=== PATIENT | female | born 1995 | race Caucasian/White ===

== ENCOUNTER 2016-12-24 11:02 | Observation (INO) ==
[2016-12-24] MEDS ORDERED: Ringers Solution, Lactated 1,000 ML IVC ONE (11:46)
[2016-12-24] MEDS ORDERED: Ringers Solution, Lactated 1,000 ML ONE (11:55)
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
[2016-12-24 12:30] LABS: Basophils % 0.1 %; Eosinophils # 0.2 K/mcL (0.0-0.6); Hematocrit 31.6 % (35.3-44.9); Hemoglobin 10.1 g/dL (11.5-15.4); Immature Granulocytes % 0.4 % (0-4); Lymphocytes # 1.5 K/mcL (0.6-4.6); Mean Corpuscular Volume 81.2 fL (83.0-100.0); Mean Platelet Volume 10.1 fL (9.4-12.4); Monocytes # 0.8 K/mcL (0.0-1.3); Monocytes % 10.2 %; Neutrophils # 5.4 K/mcL (1.6-8.9); Platelet Count 325 K/mcL (140-400); Red Blood Count 3.89 M/mcL (3.82-4.97); Red Cell Distribution Width 13.8 % (11.5-14.5); Segmented Neutrophils % 68.3 %
== END 2016-12-24 13:43 | disposition home or self-care (01) ==
LOC: 1NENULAB
PROVIDERS: ADMIT Obstetrics & Gynecology; ATTEND Obstetrics & Gynecology

== ENCOUNTER → 2017-03-06 13:45 | Observation (INO) ==
[2017-03-06 12:20] LABS: Bilirubin,Urine Negative (Negative); Blood,Urine Negative (Negative); Clarity,Urine Cloudy (Clear); Color,Urine Dark Yellow (Yellow); Glucose,Urine (UA) Normal (Normal); Ketones,Urine Negative (Negative); Leukocyte Esterase,Urine Large (Negative); Nitrite,Urine Negative (Negative); PH,Urine 6.5 pH Units (5.0-8.0); Protein,Urine Negative (Neg-Trace); Specific Gravity,Urine 1.018 (1.010-1.025); Urobilinogen,Urine Normal (Normal)
[2017-03-06 12:22] LABS: Bacteria,Urine Many per hpf (None-Few); Hyaline Casts,Urine None Seen per lpf (None-Few); Squamous Epithelial Cell,Urine Many per lpf (None-Few)
[2017-03-06 12:38] LABS: WBC,Urine 15-30 per hpf (0-3)
[2017-03-06 12:39] LABS: RBC,Urine 0-3 per hpf (0-3)
--- NOTE | 2017-03-06 13:26 | Discharge Summary ---
Date of Encounter: 03/06/17 Time of Encounter: 13:28 - Discharge Diagnosis (1) 39 weeks gestation of Priority: Primary Status: Acute Comments: 39 weeks 6 days reactive NST cervix 50/-1 urine appears contaminated and not consistent with infection, urine culture sent VS are stable mild pedal edema, denies any headache, changes in vision, RUQ/epigastric pain stable for discharge home scheduled for induction of labor tomorrow 03/07/[address] Baxter consent for induction of labor signed Pt seen and evaluated by this CNM in addition to Dr. Bunch. I agree with his assessment and plan. Pt to monitor FM today and return for IOL tomorrow. Discharge home with precautions. (2) Decreased movement during Priority: Primary Status: Acute Comments: decreased movement NST reactive, category 1 baseline 140-150s with 15 x 15 accels uterine contractions seen on toco scheduled for IOL tomorrow 03/07/2017 at 1000 patient given strict return precautions - Discharge Medications Home Medications: Ferrous Sulfate [Iron] 325 mg PO DAILY #30 tablet 12/24/16 [Rx] Sertraline [Zoloft] 1 tab PO DAILY 12/24/16 [History] Allergies/Adverse Reactions: Allergies No Known Allergies Allergy (Verified 12/24/16 11:31) Data Procedures and tests throughout hospitalization: Laboratory Tests 03/06/17 12:05 Urine Color Dark Yellow Urine Clarity Cloudy A Urine pH 6.5 Ur Specific [place] 1.018 Urine Protein Negative Urine Glucose (UA) Normal Urine Ketones Negative Urine Blood Negative Urine Nitrite Negative Urine Bilirubin Negative Urine Urobilinogen Normal Ur Leukocyte Esterase Large H Urine Microscopic RBC 0-3 Urine Microscopic WBC 15-30 H Ur Squamous Epith Cells Many H Urine Bacteria Many H Hyaline Casts None Seen Ur Culture Indicated? YES A Labs on day of discharge: Labs from last 24 hours 03/06/17 12:05 Urine Color Dark Yellow Urine Clarity Cloudy A Urine pH 6.5 Ur Specific [place] 1.018 Urine Protein Negative Urine Glucose (UA) Normal Urine Ketones Negative Urine Blood Negative Urine Nitrite Negative Urine Bilirubin Negative Urine Urobilinogen Normal Ur Leukocyte Esterase Large H Urine Microscopic RBC 0-3 Urine Microscopic WBC 15-30 H Ur Squamous Epith Cells Many H Urine Bacteria Many H Hyaline Casts None Seen Ur Culture Indicated? YES A Date of admission: 04/26/17 11:28 Primary care physician: PCP NO Discharging clinician: Abdullahi Bunch Anticipated date of discharge: 03/06/17 - Patient Status Disposition: Home, Self-Care Condition: Good Functional capacity at discharge: independent ambulation Overall status at discharge: patient is back to baseline - Discharge Instructions Follow Up With: CRISTINA,PCP [Primary Care Provider] - Additional Instructions: Scheduled for induction of labor at 1000 on 03/07/2017 Please arrive to labor and delivery at scheduled time Return sooner for any concerns such as vaginal bleeding, leakage of fluid, severe pain, headache, changes in vision, or anything else that concerns you - Diet and Activity Activity: resume usual activities as tolerated Diet: advance to your usual diet, regular diet Hospital Course TRANSPORT PILOT Discharge diagnosis: other (decreased movement) Hospital course: 21-year-old female 39 weeks 6 days presents for decreased movement. Reports since Saturday she has gradually felt less than 10 kicks within a 2 hours period. This morning she felt no movement. Denies any recent illness, fever, headache, changes in vision or abdominal pain. She has been feeling some slight contractions. Denies any vaginal bleeding or leakage of fluid. She has been eating and drinking well without any nausea or vomiting. Denies any injury or trauma. Denies any urinary symptoms. Her OB is Dr. Mcfarlane. She is scheduled for IOL 03/12. Her has been uncomplicated up to this point. Blood pressures have been normotensive. Her last cervical check was fingertip. Time Attestation: Total time spent providing and/or coordinating discharge services: Time Spent: Less than 30 minutes Exam - Constitutional General appearance IM: cooperative, A&O X 3, no acute distress, answers questions appropriately - Respiratory Respiratory exam: Present: CTAB - Cardiovascular Cardiovascular exam IM: Present: RRR, +S1, +S2 - GI/Abdominal GI/Abdominal exam IM: normal bowel sounds, no peritoneal signs - External exam: normal external exam Uterus Position: 4 Fingers Above Umbilicus Additional comments: cervix is 3/50/-1 checked by CNM - Extremities Exam Extremities exam IM: Present: full ROM, normal capillary refill, normal inspection, pedal edema (mild) - Neurological Exam Neurological exam: alert, normal gait, oriented X3 - Psychiatric Additional comments: normal mood and affect - VTE Reasons for not Prescribing Prophylaxis: Treatment not Indicated - Low risk for VTE
[~2017-03-06 13:45] MED LIST: Famotidine 20 MG/2 ML VIAL IVP PRN; Naloxone 0.4 MG/ML INJ IVP PRN; Ondansetron 4 MG/2 ML VIAL IVP PRN; Ringers Solution, Lactated 1,000 ML IVC SCH; miSOPROStol 25 MCG TABLET PO ONE
[2017-03-07 10:45] VITALS: BP 120/70
[2017-03-07 10:57] LABS: Basophils % 0.3 %; Eosinophils # 0.1 K/mcL (0.0-0.6); Eosinophils % 1.5 %; Hematocrit 31.2 % (35.3-44.9); Hemoglobin 9.5 g/dL (11.5-15.4); Immature Granulocytes % 0.6 % (0-4); Immature Platelets 5.6 % (1.1-6.1); Lymphocytes # 1.8 K/mcL (0.6-4.6); Lymphocytes % 18.8 %; Mean Corpuscular HGB Conc 30.4 g/dL (31.6-35.5); Mean Corpuscular Hemoglobin 22.6 pg (28.0-33.3); Mean Corpuscular Volume 74.1 fL (83.0-100.0); Mean Platelet Volume 10.3 fL (9.4-12.4); Monocytes # 0.7 K/mcL (0.0-1.3); Monocytes % 7.5 %; Neutrophils # 6.8 K/mcL (1.6-8.9); Platelet Count 337 K/mcL (140-400); Red Blood Count 4.21 M/mcL (3.82-4.97); Red Cell Distribution Width 14.6 % (11.5-14.5); Segmented Neutrophils % 71.3 %
== END | disposition home or self-care (01) ==
LOC: 1NENULAB
PROVIDERS: ADMIT Registered Nurse; ATTEND Obstetrics & Gynecology

== ENCOUNTER 2017-03-07 10:05 | Inpatient (IN) ==
[2017-03-07] MEDS ORDERED: Famotidine 20 MG/2 ML VIAL IVP PRN (11:27)
[2017-03-07] MEDS ORDERED: Ondansetron 4 MG/2 ML VIAL IVP PRN (11:27)
[2017-03-07] MEDS ORDERED: Naloxone 0.4 MG/ML INJ IVP PRN (11:27)
[2017-03-07] MEDS ORDERED: Ringers Solution, Lactated 1,000 ML IVC SCH (11:30)
[2017-03-07] MEDS ORDERED: miSOPROStol 25 MCG TABLET PO ONE (11:30)
--- NOTE | 2017-03-07 13:49 | OB/GYN History & Physical ---
Date of Encounter: 03/07/17 Time of Encounter: 13:43 Assessment and Plan (1) 40 weeks gestation of Current visit: Yes Status: Acute Admit for induction of labor with misoprostol and AROM Clear liquid diet May have Nubain and epidural is desired Discussed S3 sound with Dr. Baxter and anesthesia no extra monitoring needed Anticipate History of Present Illness Chief complaint: Induction of labor HPI: Ms. Cardenas is a 21 year old female 40+0 week presents today for induction of labor elective. Patient was a transfer of care in this to Dr. Mcfarlane. Normal course with the exception of patient with a history of depression and on Zoloft. Patient states rare and occasional contractions denies any vaginal bleeding or leaking of fluid and reports good movement Labs: O+, GBS negative, rubella immune and all other serologies negative Past Med Surg Social Fam HX - Past Medical History Medical history: no medical history Psychiatric history: depression - Past Surgical History Surgical History: no surgical history - Social History Smoking Status: Never smoker Smokeless Tobacco Status: No Alcohol use: none Drug use: none - Family History Father Adopted: No Living Status: Still Living Hx Family Cardiac Disorders: Yes (high blood pressure) Hx Family Respiratory Disorders: No Hx Family Cancer: No Hx Family GI Disorders: No Hx Family Genitourinary Disorders: No Hx Family Endocrine Disorder: No Hx Family Musculoskeletal Disorders: No Hx Family Neuromuscular Disorders: No Hx Family Neurologic Disorders: No Hx Family HEENT Disorders: No Hx Family Autoimmune Disorders: No Hx Family Reproductive Disorders: No Hx Family Psychosocial Disorders: No Hx Family Medical Disorders: No Obstetrical History - Pregnancies : 3 Para: 1 Term: 1 : 0 Ab's: 1 Livin Medications and Allergies Vit Calc,Iron,Folic [ Vitamins] 1 each PO DAILY 03/07/17 [ History] Allergies No Known Allergies Allergy (Verified 12/24/16 11:31) Review of System OB All systems PM: reviewed and no additional remarkable complaints except as stated Exam - Constitutional Constitutional: well developed, well nourished, no acute distress - Neck Neck exam: full ROM - Lungs Respiratory exam: CTAB - Cardiovascular Cardiovascular exam: +S1, +S2, +S3 - Breasts Breast: bilateral: normal - Abdomen Abdomen: Present: bowel sounds normal, gravid, non tender - Extremities Extremities exam: normal capillary refill, normal inspection - Vulva Vulva: bilateral: normal - Vagina Vagina: Present: normal moisture - Cervix Dilation: 3 Effacement: 50 Station: -2 - Uterus Uterus exam: Present: normal size, normal contour - Anus/Rectum Anus/Rectum: Present: normal perianal skin Results All other labs normal. - VTE Reasons for not Prescribing Prophylaxis: Treatment not Indicated - Low risk for VTE
[2017-03-07] MEDS ORDERED: Oxytocin 20 units/ LR 1000 mL 20 UNIT/1,000 ML BAG IVC SCH (15:00)
[2017-03-07] MEDS ORDERED: *HR* Nalbuphine 20 MG/ML AMPUL IVP PRN (15:34)
[2017-03-07] MEDS ORDERED: Epidural Premix (fent/bupiv) 110 ML EP ONE (15:59)
[2017-03-07] MEDS ORDERED: Epidural Premix (fent/bupiv) 110 ML EP SCH (16:00)
--- NOTE | 2017-03-07 16:44 | Anesthesia Evaluation PreOp ---
Date of Encounter: 03/07/17 Time of Encounter: 14:10 - Past History Planned Operation: CATY Cardiac History: Denies any Significant Hx Pulmonary History: Denies Any Significant HX EMERGING SOLUTIONS EXECUTIVE History: Denies Any Significant HX Other Medical History: Denies Any Significant HX Anesthesia History: No Prior Anesthetic Complications : Yes Test: Positive Alcohol Use: none Drug use: none Medications and Allergies Vit Calc,Iron,Folic [ Vitamins] 1 each PO DAILY 03/07/17 [ History] Allergies No Known Allergies Allergy (Verified 12/24/16 11:31) - Meds/Allergy Pre-op Review Medications Reviewed: Yes Allergies Reviewed: Yes Beta Blockers on Current Med List: No Anesthesia Exam Height: 65 Weight: 91 NPO (# of Hours): MN Pain Scale: 7 - HEENT Pupil (Motor): Pupils equal Mallampati: II Teeth: Normal Oral Opening: Greater than 3 - EMERGING SOLUTIONS EXECUTIVE LOC: Oriented EMERGING SOLUTIONS EXECUTIVE Motor: Normal RUE, Normal LUE, Normal RLE, Normal LLE, Normal Face EMERGING SOLUTIONS EXECUTIVE Sensory: Normal: RUE, LUE, RLE, LLE, Face - Cardiac Rhythm: Regular Murmur: None JVD: No Carotid Bruit: No - Pulmonary Breath Sounds: bilateral Clear Respiratory Effort: Symmetrical Anesthesia Assess/Plan ASA Score: 2 Modified [place] Scale for Level of Consciousness: Cooperative, oriented, and tranquil Autologous Blood: No Monitoring Plan: Standard Monitors
--- NOTE | 2017-03-07 18:00 | OB Labor Progress Note ---
Date of Encounter: 03/07/17 Time of Encounter: 17:55 Labor Progress Note - Subjective Subjective: Patient resting in bed comfortable with epidural - Heart Tones Heart Tones: 125/moderate./Accel/early - [place]: 2-5 - Interventions Interventions: Start Pitocin - Plan Plan: Anticipate
[2017-03-07] MEDS ORDERED: *HR* FentaNYL (PF) 100 MCG/2 ML VIAL ONE (21:11)
--- NOTE | 2017-03-07 23:47 | OB/GYN Procedure Note ---
Delivery - Delivery Date: 03/07/17 Provider: Ewa Cali Intrapartum events: none Delivery induction: misoprostol Delivery augmentation: rupture of membranes Delivery monitor: external FHT, external uterine Anesthesia: epidural Estimated Blood Loss: 200 - (s) A Infant Delivery Date: 03/07/17 Delivery Time: 23:06 Presentation: vertex Position: MISTY Route of delivery: Gender: Male Viability: Viable Pounds: 9 Ounces: 6 Weight Gram: 4250 kg at 1 minute: 8 at 5 mins: 9 Shoulder Dystocia: not encountered Specimens collected: cord blood Placenta: spontaneous Cord: 3 umbilical vessels - Repair Episiotomy: none Laceration Description: Perineal - 1st Degree - Complications Delivery complications: none Delivery comments: Pt presented for IOL at 40 weeks gestation due to decreased movement. She progressed normally to undergo for viable male weighing 9lbs 6oz with apgars 8/9. After pulsations ceased the cord was clamped and cut and the placenta delivered spontaneous and intact. A first degree perineal laceration was repaired with 4-0 Vicryl. EBL 200ml. Mother and baby stable in kangaroo care following delivery. - Disposition Mom disposition: stable in LDR Mears disposition: stable in LDR
[2017-03-08] MEDS ORDERED: Lanolin 7 G OINT...G. TP PRN (00:13)
[2017-03-08] MEDS ORDERED: Oxytocin 20 units/ LR 1000 mL 20 UNIT/1,000 ML BAG IVC SCH (00:13)
[2017-03-08] MEDS ORDERED: Ibuprofen 600 MG TABLET PO PRN (00:13)
[2017-03-08] MEDS ORDERED: Acetaminophen 325 MG TABLET PO PRN (00:13)
[2017-03-08] MEDS ORDERED: Benzocaine/Menthol 56 GM AEROSOL SPRAY TP PRN (00:13)
[2017-03-08] MEDS ORDERED: Measles/Mumps/Rubella Vacc 0.5 ML VIAL SQ PRN (00:13)
--- NOTE | 2017-03-08 07:56 | OB/GYN Progress Note ---
Date of Encounter: 03/08/17 Time of Encounter: 07:53 - Assessment and Plan (1) Status post vaginal delivery Current Visit: Yes Status: Acute Continue routine care discharge home tomorrow (2) Breast feeding status of mother Current Visit: Yes Status: Acute support prn Subjective - Subjective Principal diagnosis: day Interval history: Patient sitting in bed holding infant. Patient denies any pain, questions or concerns. Patient reports light lochia without blood clots. Patient reports: appetite normal, voiding normally, pain well controlled, ambulating normally : doing well, nursing well Objective - Latest Vital Signs Latest vital signs: Vital Signs Temp Pulse Resp BP Pulse Ox 03/08/17 04:00 98.1 F 98 16 107/54 97 03/08/17 03:00 98.2 F 99 14 101/53 97 03/08/17 02:00 98.3 F 99 16 116/78 97 Intake and Output 03/07/17 03/07/17 03/08/17 15:59 23:59 07:59 Output Total 600 / 600 300 / 300 Balance -600 / -600 -300 / -300 Output: Urine 300 / 300 Catheter 600 / 600 Other: Weight 91 kg 86.8 kg Patient Weight 03/08/17 23:59 Weight 86.8 kg - Exam Lungs: bilateral: normal Chest: Normal S1, Normal S2 Extremities: Present: normal Abdomen: Present: normal appearance, soft, gravid Uterus: Present: normal, firm Uterus Position: 1 Finger Below Umbilicus, Midline
[2017-03-08] MEDS: Prenatal Vit/FA 1 EACH TABLET PO SCH (09:18)
[2017-03-09] MEDS: Prenatal Vit/FA 1 EACH TABLET PO SCH (08:31)
--- NOTE | 2017-03-09 09:14 | Discharge Summary ---
Date of Encounter: 03/09/17 Time of Encounter: 09:12 - Discharge Diagnosis (1) Status post vaginal delivery Priority: Primary Status: Acute Comments: Continue routine care discharge home today follow up 4-6 weeks (2) Breast feeding status of mother Priority: Secondary Status: Acute Comments: support prn - Discharge Medications Prescriptions: Breast Pump [BREAST PUMP] 1 each .ROUTE AD #1 each Home Medications: Vit Calc,Iron,Folic [ Vitamins] 1 each PO DAILY 03/07/17 [ History] Breast Pump [BREAST PUMP] 1 each .ROUTE AD #1 each 03/09/17 [Rx] Vit/FA 1 each PO DAILY tablet 03/09/17 [Rx] Allergies/Adverse Reactions: Allergies No Known Allergies Allergy (Verified 12/24/16 11:31) Date of admission: 03/07/17 10:05 Primary care physician: PCP NO Consults: 03/08/17 00:13 Consult to Plastics Spreading Machine Operator [CONS] Routine Comment: Vaginal delivery, consult needed Discharging clinician: Shabnam Craven Anticipated date of discharge: 03/09/17 - Patient Status Disposition: Home, Self-Care Condition: Good Functional capacity at discharge: independent ambulation - Discharge Instructions Follow Up With: NO,PCP [Primary Care Provider] - Ewa Cali CNM [Non-Partnered Physician] - Additional Instructions: Perineal Care: Always wipe front to back Change your pad frequently Use your bobbi bottle with warm water and spray front to back Do not douche, use tampons, have sexual intercourse or put anything in your vagina for 4-6 weeks after delivery Bleeding: Vaginal bleeding can last up to 6 weeks Your menstrual period may return as early as 6 weeks after you are discharged from the hospital [place]/Stitches Care: Vaginal Delivery Vaginal stitches will dissolve within 4-6 weeks Follow perineal care instructions Care Stitches will dissolve on their own If you have henry, they will need to be removed in the doctors office within 5-7 days. You may shower with stitches or henry Drip plan or soapy water over the incision to clean. Pat dry gently with a clean towel. Make sure you completely dry under the skin folds DO NOT USE powders, lotions, rubbing alcohol or hydrogen peroxide on or around your incision. This will slow your wound healing It is normal to have soreness, burning, tingling, itchiness and/or numbness as your incision heals Activity: Rest frequently Do not lift anything heavier than a gallon of milk, up to 10-15 pounds No driving for 1-2 weeks for Vaginal delivery No driving for 2-4 weeks for delivery Take stairs slowly, one at a time Gradually increase your daily activity until you are back to your normal routine Do not exercise until you have had your follow-up appointment Bathing: Take a shower daily Do not take a tub bath for the first 4 weeks Diet: Drink plenty of water and fruit juices Eat a well-balanced diet with foods high in fiber such as fruits and vegetables Depression: Your hormones have a major impact on your feelings and emotions. Hormone imbalance may cause changes in your mood, creating unfamiliar thoughts and actions. Support is available to help you understand and cope with these feelings and mood changes. If you answer yes to any of the following questions, please call your health care provider: Are you having trouble sleeping? Are you feeling isolated? Have you lost your appetite? Are you having thoughts of hurting yourself or others? WARNING SIGNS: Heavy bleeding from the vagina (blood is bright red and soaks a sanitary pad in an hour or less.) Passing a blood clot larger than your fist Discharge from the vagina that has a bad odor Temperature over 100.4 F, or if you feel cold and have chills An episiotomy site that is warm, swollen or oozing. Use a mirror if needed Urination (pee) that is painful, very red and swollen or leaking fluid An incision that is painful, very red and swollen and leaking fluid An incision that has come open Breasts that are painful or full with flu like symptoms Redness, warmth or swelling in the calf of your leg Trouble breathing, dizziness, visual disturbance or faintness *Notify your health care provider immediately or go to the nearest Emergency Room if you experience any of the above signs.* To contact the nurses station 24 hours a day, For non-urgent, routine questions, please call the office at - Diet and Activity Activity: increase activity as tolerated Diet: regular diet Hospital Course Reason for admission: induction of labor Delivery: Episiotomy: none Other procedures: none complications: none Discharge diagnosis: IUP at term delivered baby: male (breast feeding) Time Attestation: Total time spent providing and/or coordinating discharge services: Time Spent: Less than 30 minutes Exam - Constitutional Vitals: Temp Pulse Resp BP Pulse Ox 97.8 F 60 16 113/70 97 03/08/17 21:10 03/08/17 21:10 03/09/17 08:41 03/08/17 21:10 03/08/17 21:10 General appearance IM: A&O X 3, pleasant, answers questions appropriately - Respiratory Respiratory exam: Present: CTAB - Cardiovascular Cardiovascular exam IM: Present: RRR, +S1, +S2 - GI/Abdominal GI/Abdominal exam IM: normal bowel sounds - Uterine Tone: Firm Uterus Position: 2 Fingers Below Umbilicus, Midline - Extremities Exam Extremities exam IM: Present: full ROM, normal capillary refill, normal inspection - Neurological Exam Neurological exam: alert, oriented X3, reflexes normal
[2017-03-09 09:57] VITALS: BP 112/70
== END 2017-03-09 12:40 | disposition home or self-care (01) | DRG 775 ==
LOC: 1NENULAB 10:05 → 1NENUOBS 03-08 02:08
PROVIDERS: ADMIT Registered Nurse; ATTEND Obstetrics & Gynecology